=== PATIENT | male | born 1980 | race Hispanic/Latino ===

== ENCOUNTER 2021-03-03 13:18 | Emergency (ER) | payer SELFPAY ==
[2021-03-03] MEDS ORDERED: ONDANSETRON 4 MG/2 ML INJ IV ONE (14:21)
[2021-03-03] MEDS ORDERED: SODIUM CHLORIDE 0.9% 1000 ML 1,000 ML IV ONE (14:21)
[2021-03-03] MEDS ORDERED: LORazepam 2 MG/ML VIAL IV ONE (14:22)
--- NOTE | 2021-03-03 14:44 | Emergency Department Report ---
ED General Adult HPI - General Chief complaint: Nausea/Vomiting/Diarrhea Stated complaint: N/V, ALCOHOL WITHDRAWL Time Seen by Provider: 03/03/21 14:15 Source: patient Mode of arrival: Wheelchair Limitations: No Limitations - History of Present Illness Initial comments: Patient is 40 years old male with history of chronic alcohol abuse. Patient to the ER from [facility] program for evaluation of nausea and vomiting. Patient stated that he was admitted yesterday. Patient stated that [employer] is not working for him. Patient currently denying any visual hallucination. No history of seizure. Patient stated that last drink was yesterday. - Related Data Allergies Allergy/AdvReac Type Severity Reaction Status Date / Time No Known Allergies Allergy Unverified 03/03/21 13:23 ED Review of Systems ROS: Stated complaint: N/V, ALCOHOL WITHDRAWL Other details as noted in HPI Comment: All other systems reviewed and negative Constitutional: denies: chills, fever Respiratory: denies: cough, shortness of breath, SOB with exertion Cardiovascular: palpitations. denies: chest pain Gastrointestinal: nausea, vomiting. denies: abdominal pain, diarrhea, constipation, hematemesis, melena, hematochezia Musculoskeletal: denies: back pain Neurological: denies: headache, weakness, numbness, paresthesias, confusion, abnormal gait ED Past Medical Hx - Surgical History Past Surgical History?: Yes Additional Surgical History: Spinal fusion. sinus surgery ED Physical Exam - General Limitations: No Limitations General appearance: alert, in no apparent distress - Head Head exam: Present: atraumatic, normocephalic, normal inspection - Eye Eye exam: Present: normal appearance, PERRL - ENT ENT exam: Present: mucous membranes dry - Neck Neck exam: Present: normal inspection, full ROM. Absent: tenderness, meningismus, lymphadenopathy - Respiratory Respiratory exam: Present: normal lung sounds bilaterally - Cardiovascular Cardiovascular Exam: Present: tachycardia - GI/Abdominal GI/Abdominal exam: Present: soft, normal bowel sounds. Absent: distended, tenderness, guarding, rebound, rigid, organomegaly, mass, bruit, pulsatile mass, hernia - Extremities Exam Extremities exam: Present: normal inspection, full ROM, normal capillary refill. Absent: tenderness, pedal edema, joint swelling, calf tenderness - Back Exam Back exam: Present: normal inspection, full ROM. Absent: CVA tenderness (R), CVA tenderness (L) - Neurological Exam Neurological exam: Present: alert, oriented X3, CN II-XII intact - Psychiatric Psychiatric exam: Present: normal mood - Skin Skin exam: Present: warm, intact, normal color ED Course Vital Signs 03/03/21 13:22 Temperature 98.3 F Pulse Rate 110 H Respiratory 18 Rate Blood Pressure 128/82 [Right] O2 Sat by Pulse 98 Oximetry ED Medical Decision Making - Lab Data Result diagrams: 03/03/21 15:17 03/03/21 15:17 - Medical Decision Making Patient is 40 years old male with history of chronic alcohol abuse. Patient to the ER from [place] [facility] program for evaluation of nausea and vomiting. Patient stated that he was admitted yesterday. Patient stated that [employer] is not working for him. Patient currently denying any visual hallucination. No history of seizure. Patient stated that last drink was yesterday. Labs reviewed and is unremarkable. Patient received Ativan 2 mg IV. Patient stated that he is feeling much better and he is ready to go back to [place] [facility] program. Patient advised to follow-up with his primary care physician in the next 2 to 3 days and to return to the ER if he develop any new symptoms. Critical care attestation.: If time is entered above; I have spent that time in minutes in the direct care of this critically ill patient, excluding procedure time. ED Disposition Clinical Impression: Acute nausea with nonbilious vomiting, Alcohol withdrawal Disposition: DC-01 TO HOME OR SELFCARE Is pt being admited?: No Condition: Stable Instructions: Alcohol Withdrawal Syndrome Referrals: PRIMARY CARE, [Primary Care Provider] - 3-5 Days
[2021-03-03 15:44] LABS: Hematocrit 43.6 % (35.5-45.6); Hemoglobin 14.7 gm/dl (11.8-15.2); Mean Corpuscular HGB Conc 34 % (32-34); Mean Corpuscular Volume 85 fl (84-94); Platelet Count 240 K/mm3 (140-440); Red Blood Count 5.11 M/mm3 (3.65-5.03); Red Cell Distribution Width 13.8 % (13.2-15.2)
[2021-03-03 16:06] LABS: Alanine Aminotransferase 22 units/L (7-56); Albumin 4.1 g/dL (3.9-5); BUN/Creatinine Ratio 12; Bilirubin,Direct 0.4 mg/dL (0-0.2); Blood Urea Nitrogen 13 mg/dL (9-20); Calcium 8.1 mg/dL (8.4-10.2); Hemolysis Index 24
[2021-03-03 17:00] LABS: RBC Morphology Normal; Total Cells Counted 100
[2021-03-03 19:08] VITALS: BP 118/72
== END 2021-03-03 19:07 | disposition home or self-care (01) ==
LOC: EDBD → ED 13:18
DX: R11.2 Nausea with vomiting, unspecified (principal); F10.239 Alcohol dependence with withdrawal, unspecified; Z98.890 Other specified postprocedural states; Y90.0 Blood alcohol level of less than 20 mg/100 ml
CPT/HCPCS: 36415; 80048; 80076; 83690; 85007; 85025; 96361; 96374; 96375; 99283; J2060; J2405; J7030; 80320; G0480